=== PATIENT | male | born 1955 | race Caucasian/White ===

== ENCOUNTER 2017-06-19 08:32 | Day surgery (SDC) | payer MEDICARE, OTHER ==
[2017-06-19] MEDS ORDERED: LACTATED RINGERS 1,000 ML IV ONE (09:17)
[2017-06-19] MEDS ORDERED: fentaNYL 100 MCG/2 ML VIAL IVP ONE (10:00)
[2017-06-19] MEDS ORDERED: MIDAZOLAM 2 MG/2 ML VIAL IVP ONE (10:00)
[2017-06-19 11:13] VITALS: BP 126/77
== END 2017-06-19 08:33 | disposition home or self-care (01) ==
LOC: SDS 08:32
PROVIDERS: ATTEND Surgery
PROC: 0DJD8ZZ Inspection of Lower Intestinal Tract, Via Natural or Artificial Opening Endoscopic (ICD-10-PCS; principal; 2017-06-19 09:45)
DX: Z12.11 Encounter for screening for malignant neoplasm of colon (principal); E78.5 Hyperlipidemia, unspecified; Z79.82 Long term (current) use of aspirin; Z87.891 Personal history of nicotine dependence
CPT/HCPCS: G0121; J7120

== ENCOUNTER 2018-09-17 23:08 | Outpatient (CLI) | payer MEDICARE, OTHER | END 2018-09-17 23:09 | disposition short-term general hospital (02) | LOC: EMS 23:08 | PROVIDERS: ATTEND Surgery | DX: R25.2 Cramp and spasm (principal) | CPT/HCPCS: A0425; A0427 ==

== ENCOUNTER 2018-09-30 14:02 | Outpatient (CLI) | payer MEDICARE, OTHER ==
[2018-09-30 14:47] LABS: BASOPHILS # (AUTO) 0.1 10^3/uL (0.0-0.1); BASOPHILS % (AUTO) 0.7 %; EOSINOPHILS # (AUTO) 0.6 10^3/uL (0.0-0.7); EOSINOPHILS % (AUTO) 3.5 %; HGB - HEMOGLOBIN 8.8 g/dL (14.0-18.0); LYMPHOCYTES # (AUTO) 1.5 10^3/uL (1.5-3.5); MEAN CORPUSCULAR HEMOGLOBIN 31.7 pg (27.0-31.0); MEAN CORPUSCULAR VOLUME 93.2 fL (80.0-94.0); MEAN PLATELET VOLUME 7.8 fL (7.4-11.4); MONOCYTES # (AUTO) 0.9 10^3/uL (0.0-1.0); MONOCYTES % (AUTO) 5.6 %; NEUTROPHILS # (AUTO) 13.7 10^3/uL (1.5-6.6); NEUTROPHILS % (AUTO) 81.2 %; PLT - PLATELET COUNT 650 10^3/uL (130-450); RED BLOOD COUNT 2.79 10^6/uL (4.70-6.10); RED CELL DISTRIBUTION WIDTH 13.9 % (12.0-15.0); WHITE BLOOD COUNT 16.8 x10^3/uL (4.8-10.8)
[2018-09-30 14:58] LABS: ALBUMIN 2.2 g/dL (3.2-5.5); ALBUMIN/GLOBULIN RATIO 0.6 (1.0-2.2); BILIRUBIN,TOTAL 0.8 mg/dL (0.2-1.0); CALCIUM 7.9 mg/dL (8.5-10.3)
== END 2018-09-30 23:59 | disposition home or self-care (01) ==
LOC: LAB.R 14:02
DX: R74.0 Nonspecific elevation of levels of transaminase and lactic acid dehydrogenase [LDH] (principal); D72.829 Elevated white blood cell count, unspecified; I73.9 Peripheral vascular disease, unspecified
CPT/HCPCS: 80053; 85025

== ENCOUNTER 2020-01-02 15:40 | Outpatient (CLI) | payer MEDICARE, OTHER | END 2020-01-02 15:41 | disposition EMS.NT | LOC: EMS 15:40 | PROVIDERS: ATTEND Surgery | DX: S01.21XA Laceration without foreign body of nose, initial encounter (principal); V43.52XA Car driver injured in collision with other type car in traffic accident, initial encounter; W45.8XXA Other foreign body or object entering through skin, initial encounter; W22.11XA Striking against or struck by driver side automobile airbag, initial encounter; Y92.410 Unspecified street and highway as the place of occurrence of the external cause ==

== ENCOUNTER 2021-02-23 00:05 | Emergency (ER) | payer MEDICARE, OTHER ==
[2021-02-23] MEDS ORDERED: SODIUM CHLORIDE 0.9% 1,000 ML IV STA (01:14)
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
[2021-02-23 01:53] LABS: ALBUMIN 4.1 g/dL (3.2-5.5); ALBUMIN/GLOBULIN RATIO 1.2 (1.0-2.2); BILIRUBIN,TOTAL 0.8 mg/dL (0.2-1.0); CALCIUM 8.9 mg/dL (8.5-10.3); POTASSIUM 3.8 mmol/L (3.5-5.0); TOTAL PROTEIN 7.5 g/dL (6.7-8.2)
[2021-02-23 02:01] LABS: BASOPHILS # (AUTO) 0.1 10^3/uL (0.0-0.1); BASOPHILS % (AUTO) 0.6 %; EOSINOPHILS # (AUTO) 0.2 10^3/uL (0.0-0.7); EOSINOPHILS % (AUTO) 1.4 %; HCT - HEMATOCRIT 43.8 % (42.0-52.0); HGB - HEMOGLOBIN 15.1 g/dL (14.0-18.0); LYMPHOCYTES # (AUTO) 2.3 10^3/uL (1.5-3.5); LYMPHOCYTES % (AUTO) 16.7 %; MEAN CORPUSCULAR HGB CONC 34.5 g/dL (32.0-36.0); MEAN CORPUSCULAR VOLUME 92.8 fL (80.0-94.0); MEAN PLATELET VOLUME 10.3 fL (7.4-11.4); MONOCYTES % (AUTO) 7.2 %; NEUTROPHILS # (AUTO) 10.1 10^3/uL (1.5-6.6); NEUTROPHILS % (AUTO) 73.7 %; PLT - PLATELET COUNT 167 10^3/uL (130-450); RED BLOOD COUNT 4.72 10^6/uL (4.70-6.10); RED CELL DISTRIBUTION WIDTH 13.6 % (12.0-15.0); WHITE BLOOD COUNT 13.7 x10^3/uL (4.8-10.8)
[2021-02-23] MEDS ORDERED: IOVERSOL 320 100 ML VIAL IVP ONE ×2 (02:03→03:04)
[2021-02-23 02:05] LABS: INR 1.3 (0.8-1.2); PT - PROTHROMBIN TIME 14.4 secs (9.9-12.6)
[2021-02-23 02:56] VITALS: BP 153/78
[2021-02-23] MEDS ORDERED: HEPARIN 25000UNITS/500ML (D5W) 25,000 UNIT/500 ML BAG IV SCH (05:00)
[2021-02-23 05:21] LABS: B. PARAPERTUSSIS- RESP PCR PAN NOT DETECTED; B. PERTUSSIS- RESP PCR PANEL NOT DETECTED; C. PNEUMONIAE- RESP PCR PANEL NOT DETECTED; CORONAVIRUS 229E-RESP PCR NOT DETECTED; CORONAVIRUS HKU1-RESP PCR NOT DETECTED; CORONAVIRUS NL63-RESP PCR NOT DETECTED; CORONAVIRUS OC43-RESP PCR NOT DETECTED; HUMAN METAPNEUMOVIRUS NOT DETECTED; INFLUENZA A- RESP PCR PANEL NOT DETECTED; INFLUENZA B - RESP PCR PANEL NOT DETECTED; M. PNEUMONIAE- RESP PCR PANEL NOT DETECTED; PARAINFLUENZA VIRUS 1 NOT DETECTED; PARAINFLUENZA VIRUS 2 NOT DETECTED; PARAINFLUENZA VIRUS 3 NOT DETECTED; PARAINFLUENZA VIRUS 4 NOT DETECTED; RHINOVIRUS/ENTEROVIRUS NOT DETECTED; RSV- RESP PCR PANEL NOT DETECTED; SARS-CoV-2 -RESP PCR PANEL NOT DETECTED
--- NOTE | 2021-02-23 11:15 | CT Report ---
PROCEDURE: CT abdomen/pelvis and runoff with aortogram. INDICATIONS: Cold foot, prior vascular surgery. CONTRAST: Nonionic contrast utilized optimize for angiographic visualization of the aorta and runoff vessels. TECHNIQUE: After the administration of intravenous contrast, 2 and 5 mm sections acquired from T12 to the feet, with optional delayed image acquisition from the knees to the feet. 3-dimensional maximum intensity projection (MIP) coronal and sagittal reformats, and/or 3-dimensional volume rendering reformatting w as then performed. For radiation dose reduction, the following was used: automated exposure control , adjustment of mA and/or kV according to patient size. COMPARISON: None. FINDINGS: Image quality: Excellent. Extravascular tissues: Lung bases are clear. Heart size is normal. Liver and spleen are normal in size and enhancement. Gallbladder contain small densely calcified gallstones layering posteriorly B iliary system is non dilated. Pancreas enhances normally. No adrenal nodules. Kidneys are normal i n size and enhancement, without hydronephrosis. Non opacified bowel loops demonstrate normal wall th ickness and enhancement. No free fluid or air. No retroperitoneal or mesenteric adenopathy. No kellie tral hernias. Bladder wall thickness is normal. No inguinal hernias or adenopathy. No suspicious b carlos lesions. No vertebral body compression fractures. Abdominal aorta: The low thoracic aorta and visualized patent abdominal aorta are normal in caliber, without dissection. The celiac and superior mesenteric arteries appear patent, with greater adjacent calcific plaquing at the celiac axis at its origin. Note is made of a retroaortic left renal vein an d patent renal arteries bilaterally, with no abnormal calcific plaquing narrowing the origin of the r enal arteries. Just below the renal artery level there is a morphologic change in the appearance of t he abdominal aorta anteriorly, which is seen to represent an aorto bifemoral bypass graft, with the b ypass graft limb was occluded bilaterally, tracking to the the hamilton aorta distally is chronically o ccluded and partially calcified. The common iliac arteries bilaterally show a similar circumstance, o ccluded and partially calcified. At the level of the common iliac artery bifurcation there is reperfu kayleigh of the external iliac arteries bilaterally, presumably by retrograde collateral flow from the in ternal iliac arteries bilaterally. The external iliac arteries are patent to the common iliac artery origin levels bilaterally. Pseudoan eurysm formation associated with the prior vascular surgery in this area is not seen, bilaterally. Right lower extremity: The right common femoral artery is patent and perfused via this collateral pa thway, and extends to its bifurcation with patency of the proximal superficial femoral artery and the profunda femoris artery proximally. The profunda femoris artery then becomes occluded proximally, se en on CT series 7 image 232. The superficial femoral artery remains perfused, tracking inferiorly wit h areas of irregular calcific and soft plaquing, with moderate segmental stenosis. This pattern jason nues distally and within the popliteal artery, to the trifurcation region where what appears to be a region of high-grade stenosis (7/409) and below this level the calf vessels show diminished flow when compared with that on the left but with at least two-vessel runoff tracking inferiorly towards the a nkle and accurate assessment at the ankle level and beyond is not possible. MR angiography may allow detection of additional anatomic detail in this area. Left lower extremity: The left common femoral artery is patent, and bifurcates into patent profunda femoris vessels, 2 dominant branches. The superficial femoral artery is occluded more anteriorly beyo nd the common femoral artery, and more inferiorly into the trifurcation region with three-vessel runo ff into the calf and two-vessel runoff crossing the ankle into the foot. IMPRESSION: Complex constellation of postsurgical change, occlusions, and reperfusion by collateral flow as discu ssed above with vascular compromise to each lower extremity, greater compromise on the right than the left. Please refer to the details by level in the body of the report above. Please note that complim entary MR angiography can be utilized to improve visualization of slow flow vascularity within the fa r distal lower extremity periphery as discussed above. Reviewed by: Maverick Avelar MD on 02/23/2021 11:14 AM PDT Approved by: Maverick Avelar MD on 02/23/2021 11:14 AM PDT Station ID: [id number]
== END 2021-02-23 05:43 | disposition short-term general hospital (02) ==
LOC: ED 00:05
DX: I74.09 Other arterial embolism and thrombosis of abdominal aorta (principal); E86.0 Dehydration; Z20.822 Contact with and (suspected) exposure to COVID-19
CPT/HCPCS: 36415; 73706; 80053; 83690; 85025; 85610; 87631; 96361; 96374; 99284; 99285; Q9967; 0202U

== ENCOUNTER 2021-02-23 07:10 | Outpatient (CLI) | payer MEDICARE, OTHER | END 2021-02-23 07:11 | disposition short-term general hospital (02) | LOC: EMS 07:10 | PROVIDERS: ATTEND Emergency Medicine | DX: I74.09 Other arterial embolism and thrombosis of abdominal aorta (principal); I73.9 Peripheral vascular disease, unspecified | CPT/HCPCS: A0425; A0426 ==